=== PATIENT | female | born 1980 | race Caucasian/White ===

== ENCOUNTER 2018-11-29 03:55 | Inpatient (IN) | payer MEDICAID ==
[2018-11-29] MEDS ORDERED: MISOPROSTOL 200 MCG TAB PR (05:00)
[2018-11-29] MEDS ORDERED: METHYLERGONOVINE 0.2 MG INJ IM (05:00)
[2018-11-29] MEDS ORDERED: CARBOPROST 250 MCG INJ IM (05:00)
[2018-11-29] MEDS ORDERED: OXYTOCIN 30 UNITS/LR 500 ML IV ×2 (05:00)
[2018-11-29] MEDS ORDERED: LIDOCAINE 1% (MPF) 30 ML INJ INJ (05:00)
[2018-11-29] MEDS ORDERED: MINERAL OIL LIGHT 10 ML VIAL TOP (05:00)
[2018-11-29] MEDS ORDERED: BUTORPHANOL 2 MG INJ IV (05:00)
[2018-11-29 05:12] LABS: ADD MAN DIFF? NO
[2018-11-29] MEDS: LACTATED RINGER'S 1,000 ML IV ×5 (05:13→20:39)
[2018-11-29 05:19] LABS: BASOPHILS % 0.2 % (0.0-2.0); EOSINOPHILS % 0.6 % (0.0-7.0); HEMATOCRIT 38.6 % (37.0-47.0); LYMPHOCYTES # 1.8 10^3/ul (0.8-2.9); MEAN CORPUSCULAR HEMOGLOBIN 29.3 pg (29.0-33.0); MEAN CORPUSCULAR HGB CONC 33.7 g/dl (32.0-37.0); MEAN CORPUSCULAR VOLUME 86.9 fl (82.0-101.0); MEAN PLATELET VOLUME 11.8 fl (7.4-10.4); MONOCYTE # 0.5 10^3/ul (0.3-0.9); MONOCYTES % 7.4 % (0.0-11.0); NEUTROPHIL # 4.1 10^3/ul (1.6-7.5); NEUTROPHILS % 63.2 % (39.0-77.0); PLATELET COUNT 153 10^3/UL (140-415); RED BLOOD COUNT 4.44 10^6/ul (4.20-5.40); RED CELL DISTRIBUTION WIDTH 14.6 % (11.5-14.5)
[2018-11-29 05:19] LABS: WHITE BLOOD COUNT 6.5 10^3/ul (4.8-10.8)
[2018-11-29 05:37] LABS: INR 0.95; PROTIME 12.8 Sec (11.9-14.9)
[2018-11-29 06:12] LABS: HEPATITIS B SURFACE ANTIGEN NEGATIVE (NEGATIVE)
[2018-11-29] MEDS: OXYTOCIN 30 UNITS/LR 500 ML IV (13:42)
[2018-11-29 16:34] LABS: RAPID PLASMA REAGIN NONREACTIVE (NR)
[2018-11-29] MEDS ORDERED: NALOXONE (0.4 MG/ML) INJ IV (20:00)
[2018-11-29] MEDS ORDERED: ONDANSETRON 4 MG INJ IV (20:00)
[2018-11-29] MEDS ORDERED: DIPHENHYDRAMINE 50 MG INJ IV (20:00)
[2018-11-29] MEDS ORDERED: TRIMETHOBENZAMIDE 100 MG/ML VIAL IM (20:00)
[2018-11-30] MEDS ORDERED: MINERAL OIL LIGHT 10 ML VIAL TOP (01:30)
[2018-11-30] MEDS: FENTAnyl 2MCG/ML-ROPIV 0.2% 100 ML BAG EPI (03:39)
[2018-11-30] MEDS: LACTATED RINGER'S 1,000 ML IV (05:44)
[2018-11-30] MEDS: OXYTOCIN 30 UNITS/LR 500 ML IV (10:07)
[2018-11-30] MEDS: DEXTROSE 5%-LR 1,000 ML IV ×2 (12:18→20:18)
[2018-11-30] MEDS ORDERED: WITCH HAZEL/GLYCERIN PAD PR (12:30)
[2018-11-30] MEDS ORDERED: ACETAMINOPHEN 325 MG TAB PO (12:30)
[2018-11-30] MEDS ORDERED: OXYTOCIN 30 UNITS/LR 500 ML IV (12:30)
[2018-11-30] MEDS ORDERED: DIPHENHYDRAMINE 50 MG INJ IV (12:30)
[2018-11-30] MEDS ORDERED: ZOLPIDEM 5 MG TAB PO (12:30)
[2018-11-30] MEDS ORDERED: DIBUCAINE 1% 30 GM OINT TOP (12:30)
[2018-11-30] MEDS ORDERED: CARBOPROST 250 MCG INJ IM (12:30)
[2018-11-30] MEDS ORDERED: METHYLERGONOVINE 0.2 MG INJ IM (12:30)
[2018-11-30] MEDS ORDERED: OXYCODONE/ASPIRIN (4.88/325) TAB PO (12:30)
[2018-11-30] MEDS: LACTATED RINGER'S 1,000 ML IV* ×2 (12:30→20:30)
[2018-11-30] MEDS ORDERED: MAGNESIUM HYDROXIDE 30ML CUP PO (12:30)
[2018-11-30] MEDS ORDERED: MISOPROSTOL 200 MCG TAB PR (12:30)
[2018-11-30] MEDS ORDERED: ONDANSETRON 4 MG INJ IV (12:30)
[2018-11-30] MEDS ORDERED: BENZOCAINE 20% 56 ML SPRAY TOP (12:30)
[2018-11-30] MEDS: IBUPROFEN 600 MG TAB PO (18:15)
[2018-11-30] MEDS: LANOLIN HPA 1 PKT TOP (20:30)
[2018-11-30] MEDS: SENNA/DOCUSATE NA (8.6MG/50MG) TAB PO (20:30)
[2018-12-01] MEDS: IBUPROFEN 600 MG TAB PO ×5 (00:07→23:51)
[2018-12-01] MEDS: DEXTROSE 5%-LR 1,000 ML IV ×2 (04:18→12:18)
[2018-12-01] MEDS: LACTATED RINGER'S 1,000 ML IV* ×2 (04:30→12:30)
[2018-12-01 04:57] LABS: ADD MAN DIFF? NO
[2018-12-01 05:05] LABS: WHITE BLOOD COUNT 8.4 10^3/ul (4.8-10.8)
[2018-12-01 05:05] LABS: BASOPHILS % 0.2 % (0.0-2.0); EOSINOPHILS # 0.1 10^3/ul (0.0-0.5); EOSINOPHILS % 1.2 % (0.0-7.0); HEMATOCRIT 32.9 % (37.0-47.0); LYMPHOCYTES # 1.8 10^3/ul (0.8-2.9); LYMPHOCYTES % 20.9 % (15.0-51.0); MEAN CORPUSCULAR HEMOGLOBIN 28.9 pg (29.0-33.0); MEAN CORPUSCULAR HGB CONC 33.4 g/dl (32.0-37.0); MEAN CORPUSCULAR VOLUME 86.4 fl (82.0-101.0); MEAN PLATELET VOLUME 11.9 fl (7.4-10.4); MONOCYTE # 0.5 10^3/ul (0.3-0.9); MONOCYTES % 6.4 % (0.0-11.0); NEUTROPHIL # 5.9 10^3/ul (1.6-7.5); NEUTROPHILS % 70.8 % (39.0-77.0); PLATELET COUNT 126 10^3/UL (140-415); RED BLOOD COUNT 3.81 10^6/ul (4.20-5.40); RED CELL DISTRIBUTION WIDTH 14.8 % (11.5-14.5)
[2018-12-02] MEDS: IBUPROFEN 600 MG TAB PO ×3 (05:40→17:15)
[2018-12-02] MEDS: MEASLES,MUMPS,RUBELLA VACCINE INJ SC* (09:44)
[2018-12-02] MEDS: DIPHTH/TET/ACEL PERTUSS (ADULT) 0.5 ML VIAL IM* (09:44)
== END 2018-12-02 19:05 | disposition home or self-care (01) | DRG 807 ==
LOC: OBT 03:55 → L-D 03:55 → MS1 11-30 12:09 → L-D 11-30 12:16 → OBT 04:45 → MS1 11-30 12:17 → L-D 04:45
PROVIDERS: Obstetrics & Gynecology
PROC: 10E0XZZ Delivery of Products of Conception, External Approach (ICD-10-PCS; principal; 2018-11-29)
PROC: 3E033VJ Introduction of Other Hormone into Peripheral Vein, Percutaneous Approach (ICD-10-PCS; 2018-11-29)
DX: O48.0 Post-term pregnancy (principal); Z37.0 Single live birth; Z3A.40 40 weeks gestation of pregnancy
CPT/HCPCS: 62322; 76815; 85025; 85610; 85730; 86592; 86850; 86900; 86901; 87340; 90715; 99464